=== PATIENT | female | born 1985 | race African-American/Black ===

== ENCOUNTER 2025-03-25 17:18 | Emergency (ER) | payer SELFPAY ==
[~2025-03-25] VITALS: Ht 170.2 cm; Wt 80.0 kg
[2025-03-25 17:21] VITALS: O2SAT 100
[2025-03-25 17:24] VITALS: BP 117/74; PULSE 73; RESP 18; TEMP 37.1; O2SAT 100
[2025-03-25 19:17] LABS: HEPATITIS A AB IGM NEGATIVE (Negative)
[2025-03-25 19:18] LABS: HEPATITIS C AB NON REACTIVE (Neg) (Negative)
[2025-03-25 19:19] LABS: HEPATITIS B CORE AB IGM NEGATIVE (Negative); HEPATITIS C AB NON REACTIVE (Neg) (Negative)
[2025-03-25 19:53] LABS: HEPATITIS C VIR.AB < 0.02 INDEXVAL (0.00-0.80)
== END 2025-03-25 19:01 | disposition home or self-care (01) ==
LOC: ER 17:18
DX: Z20.828 Contact with and (suspected) exposure to other viral communicable diseases (principal)
CPT/HCPCS: 36415; 86705; 86706; 86709; 87340; 99283